=== PATIENT | female | born 1980 | race Caucasian/White ===

== ENCOUNTER 2021-10-04 20:24 | Emergency (ER) | payer OTHER ==
[~2021-10-04] VITALS: Ht 160 cm; Wt 103.9 kg
[2021-10-04 21:03] VITALS: BP 125/74
--- NOTE | 2021-10-04 21:37 | NUR ---
RECIEVED CALL FROM ADMIT RACHELE LOZOYA WHO STATED PT LEFT FACILITY AND NO LONGER WISHED TO BE SEEN. PATIENT LEFT WITHOUT BEING SEEN BY DR. RAJAN. NO FURTHER CARE PROVIDED FOR PATIENT.
== END 2021-10-04 21:37 | disposition left against medical advice (07) ==
LOC: MED 20:24
DX: H92.03 Otalgia, bilateral (principal); J02.9 Acute pharyngitis, unspecified; Z53.21 Procedure and treatment not carried out due to patient leaving prior to being seen by health care provider

== ENCOUNTER 2021-10-09 11:23 | Emergency (ER) | payer OTHER ==
[~2021-10-09] VITALS: Ht 170.2 cm; Wt 99.8 kg
[2021-10-09 12:23] VITALS: BP 128/89
[2021-10-09] MEDS ORDERED: PRED20TA5 PO (14:04)
[2021-10-09] MEDS ORDERED: IBUP-2213 PO (14:04)
--- NOTE | 2021-10-09 15:02 | NUR ---
PT LEFT WITHOUT DC PAPERWORK VERBAL ACI GIVEN.
== END 2021-10-09 15:02 | disposition home or self-care (01) ==
LOC: MED 11:23
DX: J06.9 Acute upper respiratory infection, unspecified (principal); F17.210 Nicotine dependence, cigarettes, uncomplicated; Z88.5 Allergy status to narcotic agent
CPT/HCPCS: 71045; 99283

== ENCOUNTER 2022-03-01 07:09 | Emergency (ER) | payer OTHER ==
[~2022-03-01] VITALS: Ht 170.2 cm; Wt 104.3 kg
[~2022-03-01 07:09] MED LIST: IBUP-2213 PO; PRED20TA5 PO
[2022-03-01 07:14] VITALS: BP 104/71
[2022-03-01] MEDS ORDERED: NEOMYCIN/POLYMYXIN/BACITRACIN 0.9 GM/1 PKT TP ONE (07:35)
--- NOTE | 2022-03-01 07:37 | NUR ---
pt amb to bed 3
[2022-03-01] MEDS ORDERED: LIDOCAINE MPF 1% 10 MG/ML VIAL INJ ONE (07:40)
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
--- NOTE | 2022-03-01 07:48 | NUR ---
XRAY AT BEDSIDE
--- NOTE | 2022-03-01 08:25 | NUR ---
XRAY AT BEDSIDE
--- NOTE | 2022-03-01 08:54 | NUR ---
PT WALKED OUT. PT CALLED, NO ANSWER. VOICEMAIL LEFT
--- NOTE | 2022-03-01 09:05 | NUR ---
Ammy baker in [facility] - 03/01/22 at 0908 by [facility] PT TERI.
--- NOTE | 2022-03-01 09:08 | NUR ---
Ammy baker in [facility] - 03/01/22 at 0914 by [facility] PT NOEL
--- NOTE | 2022-03-01 09:09 | NUR ---
Chart checked and completed. The patient's care was reviewed and supervised by Svitlana Don RN.
--- NOTE | 2022-03-01 09:13 | NUR ---
PATIENT ELOPED FROM FACILITY. DISCHARGE INSTRUCTIONS NOT GIVEN TO PATIENT. DR. ALDRIDGE NOTIFIED.
== END 2022-03-01 08:54 | disposition left against medical advice (07) ==
LOC: MED 07:09
DX: S61.215A Laceration without foreign body of left ring finger without damage to nail, initial encounter (principal); S80.11XA Contusion of right lower leg, initial encounter; Z98.890 Other specified postprocedural states; Z79.1 Long term (current) use of non-steroidal anti-inflammatories (NSAID); Z79.899 Other long term (current) drug therapy; Z88.5 Allergy status to narcotic agent; W25.XXXA Contact with sharp glass, initial encounter; Y93.89 Activity, other specified; Y92.89 Other specified places as the place of occurrence of the external cause; Y99.8 Other external cause status
CPT/HCPCS: 73140; 73590; 99284; J2001; Q0092

== ENCOUNTER 2022-06-04 21:58 | Emergency (ER) | payer OTHER ==
[~2022-06-04] VITALS: Ht 170.2 cm; Wt 106.8 kg
[2022-06-04 22:28] VITALS: BP 109/66
--- NOTE | 2022-06-04 22:32 | NUR ---
PT TO LOBBY.
--- NOTE | 2022-06-05 00:31 | NUR ---
PT TAKEN TO CHAIR
--- NOTE | 2022-06-05 00:34 | NUR ---
Dr. Gonzalez examining patient.
[2022-06-05] MEDS ORDERED: ACETAMINOPHEN EXTRA STRENGTH 500 MG TAB PO ONE (01:35)
[2022-06-05] MEDS ORDERED: ACET-10509 PO (01:51)
[2022-06-05 02:00] VITALS: BP 109/66
== END 2022-06-05 02:00 | disposition home or self-care (01) ==
LOC: MED 21:58
DX: R51.9 Headache, unspecified (principal); M54.9 Dorsalgia, unspecified; R10.9 Unspecified abdominal pain; F17.210 Nicotine dependence, cigarettes, uncomplicated; Z79.899 Other long term (current) drug therapy; V43.62XA Car passenger injured in collision with other type car in traffic accident, initial encounter; Y93.89 Activity, other specified; Y92.89 Other specified places as the place of occurrence of the external cause; Y99.8 Other external cause status
CPT/HCPCS: 99282